=== PATIENT | male | born 1995 | race Caucasian/White ===

== ENCOUNTER 2024-11-25 11:56 | Emergency (ER) | payer BC, MEDICAID, SELFPAY ==
--- OUTSIDE RECORDS SUMMARY | 2024-11-25 11:58 | XMS_ITS | Clinical Summary ---
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 2 a day 0 12/11/2011 Active PARoxetine (PAXIL) 40 mg tablet Take 1 tablet by mouth every morning. 0 10/27/2014 Active traZODone (DESYREL) 100 mg tablet Take 1 tablet by mouth at bedtime. 0 10/27/2014 Active dextroamphetami ne-amphetamine (ADDERALL XR) 20 mg Extended-Releas e capsule Take 1 capsule by mouth every morning. 0 08/16/2015 Active Active Problems Problem Noted Date Diagnosed Date Myopia of both eyes with astigmatism 07/07/2016 Autism Overview (01/05/2019): Managed by Psych ADHD Overview (01/05/2019): Managed by Psych Depression Overview (01/05/2019): Managed by Psych Resolved Problems Problem Noted Date Diagnosed Date Resolved Date Viral wart 12/15/2014 01/04/2019 Immunizations Immunization Administration Dates Next Due COVID-19 vaccine (Moderna 50 mcg/0.5mL) 12YO+ BIVALENT PF, MDV 12/22/2022 DTP-HIB 1993,1993,1993 DTaP 05/16/1998,04/25/1994 HIB HbOC (HibTITER) 04/25/1994 Hepatitis B (Peds) 10/13/2006,03/27/2006 Influenza, IIV3 (Age >=3 years) 03/27/2006 Influenza, IIV4 03/28/2022, 9,04/08/2018,08/20 Influenza,CCIIV4 PRESERV FREE 02/10/2020 MMR 05/16/1998,04/25/1994 Meningococcal Vaccine (Menactra) 11/06/2011 Oral Polio Vaccine 05/16/1998, 4,1993,03/07 Tdap 04/07/2016,03/27/2006 Varicella Vaccine 03/27/2006,01/28/1996 Family History Medical History Relation Name Comments No Known Problems Brother Diabetes Father Other Maternal Grandmother macular degeneration No Known Problems Mother No Known Problems Sister 1 No Known Problems Sister 2 No Known Problems Sister 3 Relation Name Status Comments Brother Alive Father Alive Maternal Grandfather Maternal Grandmother Mother Alive Paternal Grandfather Paternal Grandmother Sister 1 Alive Sister 2 Alive Sister 3 Alive Social History Tobacco Use Types Packs/Day Years Used Date Smoking Tobacco: Never Smokeless Tobacco: Never Tobacco Cessation:Counseling Given: Yes Alcohol Use Standard Drinks/Week Comments Yes 0 (1 standard drink = 0.6 oz pur e alcohol) A couple beers a day PHQ-2 Answer Date Recorded PHQ-2 TOTAL SCORE 1 12/22/2022 Social Connections Answer Date Recorded Frequency of Communication with Friends and Fami ly Not on file 12/25/2023 Financial Resource Strain Answer Date R ecorded Difficulty of Paying Living Expenses 3 12/22/2022 Difficulty of Paying Living Expenses Not on file 12/22/2022 Food Insecurity Answer Date Recorded Worried About Running Out of Food in the Last Ye ar 1 12/22/2022 Transportation Needs Answer Date Record ed Lack of Transportation (Medical) 1 12/22/2022 Housing Stability Answer Date Recorded Unable to Pay for Housing in the Last Year 1 12/22/2022 Sex and Gender Information Value Date Recorded Sex Assigned at Not on file 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 Gender Identity Not on file Sexual Orientation Not on file 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 Not on file Not on file Obstetrics History Last Filed Vital Signs Vital Sign Reading Time Taken Comments Blood Pressure 126/82 12/22/2022 9:38 AM CDT Pulse 110 12/22/2022 9:38 AM CDT Temperature 36.9 C (98.4 F) 12/13/2020 9:37 AM CDT Respiratory Rate 12 09/26/2017 10:21 AM CDT Oxygen Saturation 97% 12/22/2022 9:38 AM CDT Inhaled Oxygen Concentration - - Weight 112.3 kg (247 lb 8 oz) 12/22/2022 9:38 AM CDT Height 187.5 cm (6' 1.82) 12/22/2022 9:38 AM CD T Body Mass Index 31.93 12/22/2022 9:38 AM CDT Plan of Treatment Health Maintenance Due Date Last Done Comments Hepatitis B series for 19+ (3 of 3 - 3-dose series) 12/08/2006 10/13/2006, 03/27/2006 BMI (ht and wt on same day) for age 18+ 12/23/2023 12/22/2022, 12/13/2020, 01/05/2019, Additional history exists Depression screening for age 12+ 12/25/2023 12/24/2022, 12/22/2022, 01/06/2019, Additional history exists COVID-19 vaccine series ( season) 2024 12/22/2022, 04/25/2021, 09/27/2020, Additional history exists Influenza Vaccine (#1) 2025 , 02/10/2020, 01/05/2019, Additional history exists Tetanus booster 04/07/2026 04/07/2016, 03/27/2006 HIV for age 15-65 Completed 12/22/2022 Hepatitis C screening for age 18-79 Completed 12/22/2022 Pneumococcal series for age 6-49 Aged Out No longer eligible based on patient's age to complete this topic Procedures Procedure Name Priority Date/Time Associated Diagnosis Comments LC HIV-1/O/2, 4TH GENERATION Routine 12/22/2022 10:09 AM CDT Encounter for screening for HIV LC HCV ANTIBODY RFX TO QUANT PCR Routine 12/22/2022 10:09 AM CDT Need for hepatitis C screening test from Last 3 Months or Most Recently Relevant to Health Maintenance Results * LC HCV ANTIBODY RFX TO QUANT PCR (12/22/2022 10:09 AM CDT) HCV Ab Non Reactive Non Reactive 12/24/2022 10:06 PM CDT [facility] ([facility]) Blood BLOOD SPECIMEN / Unknown Venipuncture / Unknown 12/22/2022 10:09 AM CDT 12/22/2022 10:09 AM CDT [facility] ([facility]) - 12/24/2022 10:06 PM CDT Performed at: [address] [place] [id number] Boilermaker Fitter: Rod Juarez MD, Phone: [phone] us Yvonne George MD LABORATORY Final R esult [facility] ([facility]) [address] [place] [address], * LC HIV-1/O/2, 4TH GENERATION (12/22/2022 10:09 AM CDT) Pathologist [facility] HIV Scr 4th Gen Non Reactive Non Reactive 12/24/2022 11:10 AM CDT [facility] ([facility]) Comment: HIV Negative HIV-1/HIV-2 antibodies and HIV-1 p24 antigen were NOT detected. There is no laboratory evidence of HIV infection. Blood BLOOD SPECIMEN / Unknown Venipuncture / Unknown 12/22/2022 10:09 AM CDT 12/22/2022 10:09 AM CDT Narrative [facility] ([facility]) - 12/24/2022 11:10 AM CDT Performed at: 01 - [facility] [address] [place], [place] [id number] Boilermaker Fitter: Rod Juarez MD, Phone: [phone] us Yvonne George MD LABORATORY Final R esult [facility] ([facility]) [facility] [place] [address], from Last 3 Months or Most Recently Relevant to Health Maintenance Insurance MEDICAID [facility] MEDICAID Care Teams Cinder Dump Crane Operator Relationship Specialty [place] [id number] [place] [address] PCP - General Family Practice 01/05/19
[2024-11-25 11:59] VITALS: BP 174/96; PULSE 105; RESP 18; TEMP 37; O2SAT 96; BMI 31.5
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
[2024-11-25] MEDS: TETANUS/DIPHTH/PERTUSSIS 0.5 ML SYRINGE IM (13:36)
== END 2024-11-25 13:48 | disposition home or self-care (01) ==
LOC: ED 13:49
PROVIDERS: Emergency Provider Internal Medicine
DX: S61.412A Laceration without foreign body of left hand, initial encounter (principal); V19.3XXA Pedal cyclist (driver) (passenger) injured in unspecified nontraffic accident, initial encounter; Z23 Encounter for immunization
CPT/HCPCS: 12001; 90471; 90715; 99283